=== PATIENT | male | born 1970 | race Caucasian/White ===

== ENCOUNTER 2016-09-07 13:39 | Day surgery (SDC) | payer OTHER ==
[~2016-09-07] VITALS: Ht 188 cm; Wt 139.5 kg
[~2016-09-07 13:39] MED LIST: ASPIRIN81 M2 PO; MEN'S ONE DAIL1 EACH PO; SYNTHROID88 MCG PO; ZESTRIL30 MG PO
[2016-09-07] MEDS ORDERED: NIACIN500 M1 PO (14:09)
[2016-09-07 14:10] VITALS: BP 136/80
[2016-09-07 14:47] LABS: HEMATOCRIT 44.4 % (38.0-50.0); MCH 32.8 PG (29.0-34.0); MCHC 34.7 G/DL (30.0-36.0); MCV 94.5 FL (86-99); MEAN PLAT.VOLUME 9.9 uM^3 (9.0-12.4); PLATELET COUNT 238 K/uL (156-360); RBC DIS.WIDTH-CV 12.3 % (11.8-14.6); RBC DIS.WIDTH-SD 42.8 % (39-53); WHITE BLOOD COUNT 7.8 K/uL (4.1-10.2)
[2016-09-07 20:05] VITALS: BP 110/69
[2016-09-07 20:46] VITALS: BP 123/72
== END 2016-09-07 20:53 | disposition home or self-care (01) ==
LOC: SDC 13:39
PROVIDERS: Ophthalmology Retina Specialist
PROC: 08B43ZZ Excision of Right Vitreous, Percutaneous Approach (ICD-10-PCS; principal; 2016-09-07)
PROC: 08QE3ZZ Repair Right Retina, Percutaneous Approach (ICD-10-PCS; principal; 2016-09-07)
DX: H33.031 Retinal detachment with giant retinal tear, right eye (principal); I10 Essential (primary) hypertension; Z88.1 Allergy status to other antibiotic agents; Z88.6 Allergy status to analgesic agent; Z88.8 Allergy status to other drugs, medicaments and biological substances
CPT/HCPCS: 85027; 93005; J0690; J0713; J1100; J1200; J2250; J3010